=== PATIENT | male | born 1945 | race Caucasian/White ===

== ENCOUNTER → 2020-11-14 | Outpatient (CLI) | payer MEDICARE ==
[~2020-11-14] MED LIST: ATORVASTATIN PO; CETIRIZINE HCL10 MG PO; COLCHICINE0.6 MG PO; ELIQUIS5 MG PO; LIPITOR10 MG PO; LOW DOSE ASPIRI81 MG PO; SINGULAIR10 MG PO; ZYLOPRIM100 MG PO
== END ==
LOC: KOH-I 09:17
DX: S62.321A Displaced fracture of shaft of second metacarpal bone, left hand, initial encounter for closed fracture (principal); S62.392A Other fracture of third metacarpal bone, right hand, initial encounter for closed fracture; X58.XXXA Exposure to other specified factors, initial encounter
CPT/HCPCS: 73200

== ENCOUNTER → 2020-11-17 | Outpatient (CLI) | payer MEDICARE ==
[2020-11-17 12:04] LABS: HEMOGLOBIN 13.6 gm/dl (14.0-17.5); RED BLOOD COUNT 4.35 M/UL (4.20-5.50); WHITE BLOOD COUNT 8.3 K/UL (4.5-11.0)
[2020-11-17 12:29] LABS: BUN/CREATININE RATIO 11 (0-10)
== END ==
LOC: OPSV2 11:00
PROVIDERS: Orthopaedic Surgery
DX: Z01.818 Encounter for other preprocedural examination (principal); S62.392A Other fracture of third metacarpal bone, right hand, initial encounter for closed fracture; S62.396A Other fracture of fifth metacarpal bone, right hand, initial encounter for closed fracture; S63.202A Unspecified subluxation of right middle finger, initial encounter; I49.1 Atrial premature depolarization; R94.31 Abnormal electrocardiogram [ECG] [EKG]; X58.XXXA Exposure to other specified factors, initial encounter
CPT/HCPCS: 36415; 71046; 80048; 85025; 93005

== ENCOUNTER → 2020-11-20 | Day surgery (SDC) | payer MEDICARE ==
[~2020-11-20] VITALS: Ht 172.7 cm; Wt 80.7 kg
[2020-11-20 07:24] LABS: BUN/CREATININE RATIO 12 (0-10)
== END | disposition home or self-care (01) ==
LOC: OR 05:45
PROVIDERS: Orthopaedic Surgery
PROC: 0RSU04Z Reposition Right Metacarpophalangeal Joint with Internal Fixation Device, Open Approach (ICD-10-PCS; 2020-11-20)
PROC: 0RSU04Z Reposition Right Metacarpophalangeal Joint with Internal Fixation Device, Open Approach (ICD-10-PCS; principal; 2020-11-20 09:15)
DX: S63.264A Dislocation of metacarpophalangeal joint of right ring finger, initial encounter (principal); S63.266A Dislocation of metacarpophalangeal joint of right little finger, initial encounter; W18.39XA Other fall on same level, initial encounter; S63.591A Other specified sprain of right wrist, initial encounter; I10 Essential (primary) hypertension; E78.5 Hyperlipidemia, unspecified; M19.90 Unspecified osteoarthritis, unspecified site; Z86.73 Personal history of transient ischemic attack (TIA), and cerebral infarction without residual deficits; Z86.718 Personal history of other venous thrombosis and embolism; Z79.01 Long term (current) use of anticoagulants; Z79.82 Long term (current) use of aspirin; Z79.899 Other long term (current) drug therapy; Z20.822 Contact with and (suspected) exposure to COVID-19
CPT/HCPCS: 73130; 76000; 80048; C1713; J0592; J0690; J1100; J2001; J2250; J2704; J2795; J3010; J7120

== ENCOUNTER → 2021-06-28 | Outpatient (CLI) | payer MEDICARE | LOC: EMI 10:03 | DX: R55 Syncope and collapse (principal); G31.9 Degenerative disease of nervous system, unspecified; R90.89 Other abnormal findings on diagnostic imaging of central nervous system | CPT/HCPCS: 70551 ==